=== PATIENT | female | born 1960 | race Caucasian/White ===

== ENCOUNTER → 2016-10-28 | Outpatient (CLI) | payer BC | END | disposition home or self-care (01) | LOC: MAMMO 13:03 | DX: Z01.419 Encounter for gynecological examination (general) (routine) without abnormal findings (principal) ==

== ENCOUNTER → 2017-11-26 | Outpatient (CLI) | payer BC | END | disposition home or self-care (01) | LOC: MAMMO 14:00 | DX: Z12.31 Encounter for screening mammogram for malignant neoplasm of breast (principal) ==

== ENCOUNTER 2019-12-05 11:54 | Emergency (ER) | payer BC ==
[2019-12-05 13:08] LABS: COLOR YELLOW (YELLOW)
[2019-12-05 13:09] LABS: BILIRUBIN NEGATIVE (NEGATIVE); BLOOD 1+ (NEGATIVE); CLARITY SL CLOUDY (CLEAR); GLUCOSE NEGATIVE (NEGATIVE); KETONE NEGATIVE (NEGATIVE); LEUKO ESTERASE 2+ (NEGATIVE); NITRITE NEGATIVE (NEGATIVE); UROBILINOGEN 0.2 E.U./dl (0.2-1.0); WBC 16-20 wbc/hpf (0-5)
[2019-12-05 13:10] LABS: BACTERIA 1+
[2019-12-05] MEDS ORDERED: NAPROSYN500 MG PO (14:36)
[2019-12-05] MEDS ORDERED: TYLENOL325 M1 PO (14:36)
== END 2019-12-05 14:40 | disposition home or self-care (01) ==
LOC: ED 11:54
PROVIDERS: Emergency Medicine
DX: S79.912A Unspecified injury of left hip, initial encounter (principal); Z89.429 Acquired absence of other toe(s), unspecified side; W55.12XA Struck by horse, initial encounter; Y93.89 Activity, other specified; Y92.89 Other specified places as the place of occurrence of the external cause; Y99.8 Other external cause status

== ENCOUNTER 2020-04-11 19:44 | Emergency (ER) | payer BC ==
[~2020-04-11] VITALS: Ht 172.7 cm; Wt 61.2 kg
[~2020-04-11 19:44] MED LIST: NAPROSYN500 MG PO; TYLENOL325 M1 PO
[2020-04-11] MEDS ORDERED: IBU800 MG PO (23:44)
[2020-04-11] MEDS ORDERED: PERCOCET 5-3251 EACH PO (23:45)
== END 2020-04-11 23:56 | disposition home or self-care (01) ==
LOC: ED 19:44
DX: S39.012A Strain of muscle, fascia and tendon of lower back, initial encounter (principal); M25.551 Pain in right hip; Z91.040 Latex allergy status; W16.42XA Fall into unspecified water causing other injury, initial encounter; Y93.89 Activity, other specified; Y92.89 Other specified places as the place of occurrence of the external cause; Y99.8 Other external cause status

== ENCOUNTER → 2025-08-01 | Outpatient (CLI) | payer MEDICARE ==
[~2025-08-01] MED LIST changes: +IBU800 MG PO; +PERCOCET 5-3251 EACH PO
== END | disposition home or self-care (01) ==
LOC: CARD 17:11
PROVIDERS: ATTEND Family Medicine
DX: I49.9 Cardiac arrhythmia, unspecified (principal)